=== PATIENT | female | born 1980 | race Caucasian/White ===

== ENCOUNTER → 2016-07-31 | Day surgery (SDC) | payer OTHER ==
[2016-07-30 14:27] LABS: BASOPHIL 0.8 % (0-2); EOSINOPHIL 3.3 % (0-5); HCT 37.6 % (37.0-47.0); HGB 12.1 g/dl (12.5-16.0); LYMPHOCYTE 39.8 % (15-48); MCH 25.6 pg (25.0-31.0); MCHC 32.2 g/dL (32.0-36.0); MCV 79.7 fL (78.0-100.0); MPV 10.3 fL (6.0-9.5); NEUTROPHIL 50.1 % (41-80); PLT 380 K/uL (150-400); RBC 4.72 M/uL (4.20-5.40); RDW 16.4 % (11.5-14.0); WBC 12.1 K/uL (4.0-10.5)
== END | disposition home or self-care (01) ==
LOC: FAS 06:32
PROVIDERS: Oral & Maxillofacial Surgery
DX: K02.9 Dental caries, unspecified (principal); R56.9 Unspecified convulsions; K21.9 Gastro-esophageal reflux disease without esophagitis; J45.909 Unspecified asthma, uncomplicated; F41.8 Other specified anxiety disorders; E66.01 Morbid (severe) obesity due to excess calories; D64.9 Anemia, unspecified; I10 Essential (primary) hypertension; F17.210 Nicotine dependence, cigarettes, uncomplicated; Z90.49 Acquired absence of other specified parts of digestive tract; Z98.890 Other specified postprocedural states; Z79.899 Other long term (current) drug therapy
CPT/HCPCS: 36415; 71020; 84703; 85025; 93005; J1100; J2405; J2704; J3010

== ENCOUNTER 2021-02-07 10:01 | Inpatient (IN) | payer MEDICARE, OTHER ==
[~2021-02-07] VITALS: Ht 157.5 cm; Wt 65.3 kg
[2021-02-07 10:39] LABS: BASOPHIL 0.7 % (0-2); EOSINOPHIL 1.1 % (0-5); HCT 41.7 % (37.0-47.0); LYMPHOCYTE 23.5 % (15-48); MCH 29.4 pg (25.0-31.0); MCHC 33.6 g/dL (32.0-36.0); MCV 87.6 fL (78.0-100.0); MONOCYTE 7.7 % (0-12); MPV 10.8 fL (6.0-9.5); NEUTROPHIL 66.8 % (41-80); NRBC 0; PLT 249 K/uL (150-400); RBC 4.76 M/uL (4.20-5.40); RDW 12.8 % (11.5-14.0); WBC 13.5 K/uL (4.0-10.5)
[2021-02-07 11:00] LABS: ALBUMIN 3.4 g/dL (3.4-5.0); BILIRUBIN - TOTAL 0.4 mg/dL (0.2-1.0); CREATININE 0.63 mg/dL (0.51-0.95); GLOBULIN (CALCULATION) 3.5 g/dL; POTASSIUM 4.3 mmol/L (3.5-5.1); TOTAL PROTEIN 6.9 g/dL (6.4-8.2)
[2021-02-07 11:35] LABS: BILIRUBIN NEGATIVE (NEGATIVE); BLOOD NEGATIVE Ery/uL (NEGATIVE); CLARITY CLEAR (CLEAR); COLOR YELLOW (YELLOW); GLUCOSE (U) NORMAL (NORMAL); LEUKOCYTES NEGATIVE Leu/uL (NEGATIVE); NITRITE NEGATIVE (NEGATIVE); PROTEIN NEGATIVE (NEGATIVE); SPECIFIC GRAVITY 1.015 (1.001-1.030); UROBILINOGEN 0.2 mg/dL (0.2-1.0)
[2021-02-07] MEDS ORDERED: COLACE100 M1 PO (15:15)
[2021-02-07] MEDS ORDERED: NEURONTIN300 MG PO (15:15)
[2021-02-07] MEDS ORDERED: DIGITEK125 MCG PO (15:15)
[2021-02-07] MEDS ORDERED: OXYBUTYNIN CHLO15 MG PO (15:16)
[2021-02-07] MEDS ORDERED: BUSPIRONE HCL15 MG PO (15:16)
[2021-02-08 05:41] LABS: BASOPHIL 0.3 % (0-2); EOSINOPHIL 0.1 % (0-5); HCT 43.2 % (37.0-47.0); HGB 14.6 g/dl (12.5-16.0); LYMPHOCYTE 15.6 % (15-48); MCH 29.3 pg (25.0-31.0); MCHC 33.8 g/dL (32.0-36.0); MCV 86.6 fL (78.0-100.0); MONOCYTE 7.8 % (0-12); MPV 10.6 fL (6.0-9.5); NEUTROPHIL 75.8 % (41-80); NRBC 0; PLT 258 K/uL (150-400); RBC 4.99 M/uL (4.20-5.40); RDW 12.7 % (11.5-14.0); WBC 18.8 K/uL (4.0-10.5)
[2021-02-08 05:50] LABS: INR 1.1 (0.9-1.2); PROTHROMBIN TIME 13.6 SECONDS (11.8-13.4); PTT 29.7 SECONDS (24.4-34.7)
[2021-02-08 06:01] LABS: ALBUMIN 3.1 g/dL (3.4-5.0); BILIRUBIN - TOTAL 0.8 mg/dL (0.2-1.0); BUN/CREAT RATIO (CALC) 16.1 RATIO; CREATININE 0.56 mg/dL (0.51-0.95); GLOBULIN (CALCULATION) 4.1 g/dL; POTASSIUM 3.8 mmol/L (3.5-5.1); TOTAL PROTEIN 7.2 g/dL (6.4-8.2)
--- NOTE | 2021-02-08 10:46 | NUR ---
PATIENT HEADING TO SURGERY AT THIS TIME
[2021-02-09 04:01] LABS: BASOPHIL 0.3 % (0-2); EOSINOPHIL 0.5 % (0-5); HCT 36.1 % (37.0-47.0); HGB 12.1 g/dl (12.5-16.0); LYMPHOCYTE 21.2 % (15-48); MCH 29.7 pg (25.0-31.0); MCHC 33.5 g/dL (32.0-36.0); MCV 88.7 fL (78.0-100.0); MONOCYTE 7.8 % (0-12); MPV 10.7 fL (6.0-9.5); NEUTROPHIL 69.8 % (41-80); NRBC 0; PLT 230 K/uL (150-400); RBC 4.07 M/uL (4.20-5.40); WBC 13.2 K/uL (4.0-10.5)
[2021-02-09 04:28] LABS: ALBUMIN 2.6 g/dL (3.4-5.0); BILIRUBIN - TOTAL 0.8 mg/dL (0.2-1.0); BUN/CREAT RATIO (CALC) 14.5 RATIO; CREATININE 0.55 mg/dL (0.51-0.95); GLOBULIN (CALCULATION) 3.8 g/dL; POTASSIUM 3.6 mmol/L (3.5-5.1); TOTAL PROTEIN 6.4 g/dL (6.4-8.2)
[2021-02-09 05:06] LABS: HBSAG SCREEN Negative (Negative); HEP A AB, IGM Negative (Negative); HEP B CORE AB, IGM Negative (Negative); HEP C VIRUS AB 2.8 (0.0-0.9)
[2021-02-09] MEDS ORDERED: AUGMENTIN 875-1 EACH PO (14:37)
[2021-02-09] MEDS ORDERED: OXY-IR 5MG5 MG PO (14:39)
--- NOTE | 2021-02-09 16:37 | NUR ---
1535--IV REMOVED PER PATIENT, NO BLEEDING NOTED. KAROL DRAIN ASSESSED PRIOR TO LEAVING. PATIENT EDUCATED ON DRAIN, DIET. DISCUSSED DISCHARGE INSTRUCTIONS WITH PATIENT. IN STABLE CONDITION. D/C HOME
[2021-02-11] MEDS ORDERED: OXY-IR 5MG5 MG PO (13:48)
== END 2021-02-09 15:35 | disposition home or self-care (01) | DRG 418 ==
LOC: FER 10:01 → FMS 12:58
PROVIDERS: Internal Medicine; Surgery; ADMIT Family Medicine
PROC: 0FT44ZZ Resection of Gallbladder, Percutaneous Endoscopic Approach (ICD-10-PCS; principal; 2021-02-08 11:30)
DX: K81.0 Acute cholecystitis (principal); K82.0 Obstruction of gallbladder; Z20.822 Contact with and (suspected) exposure to COVID-19; F32.9 Major depressive disorder, single episode, unspecified; F41.9 Anxiety disorder, unspecified; D64.89 Other specified anemias; Z90.710 Acquired absence of both cervix and uterus; Z88.6 Allergy status to analgesic agent; Z98.890 Other specified postprocedural states; Z90.89 Acquired absence of other organs; Z86.19 Personal history of other infectious and parasitic diseases; Z87.442 Personal history of urinary calculi; Z83.3 Family history of diabetes mellitus; Z82.49 Family history of ischemic heart disease and other diseases of the circulatory system
CPT/HCPCS: 36415; 76705; 78227; 80053; 80074; 81003; 83690; 84484; 85025; 85610; 85730; 87070; 87075; 87077; 87186; 87205; 94010; A9537; J0780; J1100; J1170; J1885; J2250; J2370; J2405; J2543; J2550; J2704; J2710; J2805; J3010; J7030; J7120; Q9967; U0002